=== PATIENT | male | born 1975 | race Caucasian/White ===

== ENCOUNTER 2017-08-06 08:18 | Emergency (ER) | payer BC ==
[2017-08-06 08:29] VITALS: BP 128/79
--- NOTE | 2017-08-06 08:41 | EDM.PDOC ---
ED HPI GENERAL MEDICAL PROBLEM - General Chief Complaint: Abdominal Pain Stated Complaint: AB PAIN [id number] Time Seen by Provider: 08/06/17 08:32 Source of Information: Reports: Patient History Limitations: Reports: No Limitations - History of Present Illness INITIAL COMMENTS - FREE TEXT/NARRATIVE: 41 yo white male w/ PMHx. Diverticulitis presently taking oral antibiotics c/o LLQ pain w/ fever and blood in stool Onset Date: 08/02/17 Onset Time: 12:00 Duration: Day(s): Location: Reports: Abdomen Quality: Reports: Ache, Same as Previous Episode Severity: Moderate Improves with: Reports: None Worsens with: Reports: None Associated Symptoms: Reports: Loss of Appetite Left Lower Abdomen Pain Score (Numeric/FACES): 8 - Related Data Allergies Allergy/AdvReac Type Severity Reaction Status Date / Time No Known Allergies Allergy Unverified 08/06/17 08:29 Home Meds: Home Meds Aspirin [Halfprin] 81 mg PO DAILY 08/22/14 [History] Simvastatin [Zocor] 20 mg PO BEDTIME 08/22/14 [History] Acetaminophen [Tylenol Extra Strength] 1,000 mg PO ASDIRECTED PRN 08/06/17 [ History] Esomeprazole Magnesium [Nexium] 20 mg PO DAILY 08/06/17 [History] Losartan [Cozaar] 25 mg PO DAILY 08/06/17 [History] Social & Family History - Tobacco Use Smoking Status *Q: Never Smoker - Alcohol Use Days Per Week of Alcohol Use: 1 - Recreational Drug Use Recreational Drug Use: No Drug Use in Last 12 Months: No ED ROS GENERAL - Review of Systems Review Of Systems: See Below Constitutional: Reports: No Symptoms HEENT: Reports: No Symptoms Respiratory: Reports: No Symptoms Cardiovascular: Reports: No Symptoms Endocrine: Reports: No Symptoms GI/Abdominal: Reports: Abdominal Pain (LLQ) : Reports: No Symptoms Musculoskeletal: Reports: No Symptoms Skin: Reports: No Symptoms Neurological: Reports: No Symptoms Psychiatric: Reports: No Symptoms Hematologic/Lymphatic: Reports: No Symptoms Immunologic: Reports: No Symptoms ED EXAM, GI/ABD - Physical Exam Exam: See Below Exam Limited By: No Limitations General Appearance: Alert Eyes: Bilateral: EOMI Ears: Normal External Exam Nose: Normal Inspection Throat/Mouth: Normal Inspection Head: Atraumatic Neck: Normal Inspection Respiratory/Chest: No Respiratory Distress Cardiovascular: Normal Peripheral Pulses GI/Abdominal Exam: Abnormal Bowel Sounds (decreased) Back Exam: Normal Inspection Extremities: Normal Inspection, Normal Range of Motion Neurological: Alert, Oriented, CN II-XII Intact Psychiatric: Normal Affect Skin Exam: Warm, Dry Lymphatic: No Adenopathy Course - Vital Signs Last Recorded V/S: Last Vital Signs Temp 36.0 C 08/06/17 08:24 Pulse 96 08/06/17 08:24 Resp 16 08/06/17 08:24 BP 128/79 08/06/17 08:24 Pulse Ox 100 08/06/17 08:24 - Orders/Labs/Meds Orders: Active Orders 24 hr Category Date Time Status Abdomen 2V AP Flat Upright [CR] Urgent Exams 08/06/17 08:33 Stop Req Ciprofloxacin in D5W [Cipro in D5W 400 MG/200 ML] 400 Med 08/06/17 10:26 Ordered mg Premix Bag 1 bag IV ONETIME Sodium Chloride 0.9% [Normal Saline] 1,000 ml Med 08/06/17 08:45 Active IV ASDIRECTED metroNIDAZOLE/Normal Saline [Flagyl 500 MG in NS 100 ML Med 08/06/17 10:26 Ordered ] 500 mg Premix Bag 100 bag IV ONETIME Medication Orders Sodium Chloride (Normal Saline) 1,000 mls @ 150 mls/hr IV ASDIRECTED [facility] Last Admin: 08/06/17 09:24 Dose: 150 mls/hr Ciprofloxacin/Dextrose 400 mg/ (Premix) 200 mls @ 200 mls/hr IV ONETIME ONE Stop: 08/06/17 11:25 Metronidazole 500 mg/ Premix 100 mls @ 100 mls/hr IV ONETIME ONE Stop: 08/06/17 11:25 Labs: Laboratory Tests 08/06/17 08/06/17 08/06/17 Range/Units 08:48 08:48 08:48 WBC 16.3 H (5.0-10.0) 10^3/uL RBC 5.62 (4.6-6.2) 10^6/uL Hgb 15.9 (14.0-18.0) g/dL Hct 46.5 (40.0-54.0) % MCV 82.7 (80-100) fL MCH 28.3 (27.0-34.0) pg MCHC 34.2 (33.0-35.0) g/dL Plt Count 224 (150-450) 10^3/uL Neut % (Auto) 76.1 H (42.2-75.2) % Lymph % (Auto) 14.2 L (20.5-50.1) % [place] % (Auto) 8.9 H (2-8) % Eos % (Auto) 0.6 L (1.0-3.0) % Baso % (Auto) 0.2 (0.0-1.0) % Sodium 139 (135-145) mmol/L Potassium 4.5 (3.6-5.0) mmol/L Chloride 103 (101-111) mmol/L Carbon Dioxide 28.0 (21.0-31.0) mmol/L Anion Gap 12.5 BUN 11 (7-18) mg/dL Creatinine 0.8 (0.6-1.3) mg/dL Est Cr Clr Drug Dosing 119.31 mL/min Estimated GFR (MDRD) > 60 BUN/Creatinine Ratio 13.75 Glucose 111 H (74-105) mg/dL Calcium 9.7 (8.4-10.2) mg/dl Total Bilirubin 1.0 (0.2-1.0) mg/dL AST 21 (10-42) IU/L ALT 31 (10-60) IU/L Alkaline Phosphatase 75 (42-121) IU/L Total Protein 7.8 (6.7-8.2) g/dl Albumin 3.9 (3.2-5.5) g/dl Globulin 3.9 Albumin/Globulin Ratio 1.00 Amylase 48 (28-100) U/L Lipase 19 L (22-51) U/L Urine Color (YELLOW) Urine Appearance (CLEAR) Urine pH (5.0-9.0) Ur Specific [place] (1.005-1.030) Urine Protein (NEGATIVE) Urine Glucose (UA) (NEGATIVE) Urine Ketones (NEGATIVE) Urine Occult Blood (NEGATIVE) Urine Nitrite (NEGATIVE) Urine Bilirubin (NEGATIVE) Urine Urobilinogen (0.2-1.0) mg/dL Ur Leukocyte Esterase (NEGATIVE) Urine RBC /HPF Urine WBC (0-5/HPF) /HPF Ur Epithelial Cells /HPF Urine Bacteria (0-FEW/HPF) /HPF Urine Mucus /LPF 10/14/17 Range/Units 10:15 WBC (5.0-10.0) 10^3/uL RBC (4.6-6.2) 10^6/uL Hgb (14.0-18.0) g/dL Hct (40.0-54.0) % MCV (80-100) fL MCH (27.0-34.0) pg MCHC (33.0-35.0) g/dL Plt Count (150-450) 10^3/uL Neut % (Auto) (42.2-75.2) % Lymph % (Auto) (20.5-50.1) % [place] % (Auto) (2-8) % Eos % (Auto) (1.0-3.0) % Baso % (Auto) (0.0-1.0) % Sodium (135-145) mmol/L Potassium (3.6-5.0) mmol/L Chloride (101-111) mmol/L Carbon Dioxide (21.0-31.0) mmol/L Anion Gap BUN (7-18) mg/dL Creatinine (0.6-1.3) mg/dL Est Cr Clr Drug Dosing mL/min Estimated GFR (MDRD) BUN/Creatinine Ratio Glucose (74-105) mg/dL Calcium (8.4-10.2) mg/dl Total Bilirubin (0.2-1.0) mg/dL AST (10-42) IU/L ALT (10-60) IU/L Alkaline Phosphatase (42-121) IU/L Total Protein (6.7-8.2) g/dl Albumin (3.2-5.5) g/dl Globulin Albumin/Globulin Ratio Amylase (28-100) U/L Lipase (22-51) U/L Urine Color [place] (YELLOW) Urine Appearance Clear (CLEAR) Urine pH 7.0 (5.0-9.0) Ur Specific [place] 1.010 (1.005-1.030) Urine Protein Trace H (NEGATIVE) Urine Glucose (UA) Negative (NEGATIVE) Urine Ketones Negative (NEGATIVE) Urine Occult Blood Moderate H (NEGATIVE) Urine Nitrite Negative (NEGATIVE) Urine Bilirubin Negative (NEGATIVE) Urine Urobilinogen 0.2 (0.2-1.0) mg/dL Ur Leukocyte Esterase Negative (NEGATIVE) Urine RBC 20-30 H /HPF Urine WBC 0-5 (0-5/HPF) /HPF Ur Epithelial Cells Few /HPF Urine Bacteria Rare (0-FEW/HPF) /HPF Urine Mucus Few H /LPF Meds: Medications Generic Name Dose Route Start Last Admin Trade Name Freq PRN Reason Stop Dose Admin Sodium Chloride 1,000 mls @ 150 mls/hr 08/06/17 08:45 08/06/17 09:24 Normal Saline IV 150 mls/hr ASDIRECTED ELOISA Administration Ciprofloxacin/Dextrose 400 mg/ 200 mls @ 200 mls/hr 08/06/17 10:26 Premix IV 08/06/17 11:25 ONETIME ONE Metronidazole 500 mg/ Premix 100 mls @ 100 mls/hr 08/06/17 10:26 IV 08/06/17 11:25 ONETIME ONE Discontinued Medications Generic Name Dose Route Start Last Admin Trade Name Alexander PRN Reason Stop Dose Admin Hydromorphone HCl 1 mg 08/06/17 09:20 Dilaudid IM 08/06/17 09:21 ONETIME ONE Hydromorphone HCl 1 mg 08/06/17 09:25 08/06/17 09:27 Dilaudid IVPUSH 08/06/17 09:26 1 mg ONETIME ONE Administration Iopamidol 100 ml 08/06/17 08:43 08/06/17 09:37 Isovue-300 (61%) IVPUSH 08/06/17 08:44 100 ml ONETIME ONE Administration Tamsulosin HCl 0.4 mg 08/06/17 10:26 Flomax PO 08/06/17 10:27 ONETIME ONE Departure - Departure Time of Disposition: 10:37 Disposition: DC/Tfer to Acute Hospital 02 Condition: Fair Clinical Impression: Diverticulitis large intestine w/o perforation or abscess w/o bleeding, Kidney stone on right side - Discharge Information Forms: ED Department Discharge, Interfacility Transfer EMTALA - My Orders Last 24 Hours: My Active Orders 08/06/17 08:33 Abdomen 2V AP Flat Upright [CR] Urgent 08/06/17 08:45 Sodium Chloride 0.9% [Normal Saline] 1,000 ml IV ASDIRECTED 08/06/17 10:26 Ciprofloxacin in D5W [Cipro in D5W 400 MG/200 ML] 400 mg Premix Bag 1 bag IV ONETIME metroNIDAZOLE/Normal Saline [Flagyl 500 MG in NS 100 ML] 500 mg Premix Bag 100 bag IV ONETIME - Assessment/Plan Last 24 Hours: My Active Orders 08/06/17 08:33 Abdomen 2V AP Flat Upright [CR] Urgent 08/06/17 08:45 Sodium Chloride 0.9% [Normal Saline] 1,000 ml IV ASDIRECTED 08/06/17 10:26 Ciprofloxacin in D5W [Cipro in D5W 400 MG/200 ML] 400 mg Premix Bag 1 bag IV ONETIME metroNIDAZOLE/Normal Saline [Flagyl 500 MG in NS 100 ML] 500 mg Premix Bag 100 bag IV ONETIME
[2017-08-06] MEDS ORDERED: Iopamidol 612 MG/ML 100 ML Bottle IVPUSH ONE (08:43)
[2017-08-06] MEDS ORDERED: Sodium Chloride 0.9% 1,000 ML IV SCH (08:45)
[2017-08-06 09:14] LABS: CHLORIDE,CL 103 mmol/L (101-111); SODIUM,NA 139 mmol/L (135-145)
[2017-08-06] MEDS ORDERED: HYDROmorphone 1 MG/ML Syringe IM ONE (09:20)
[2017-08-06] MEDS ORDERED: HYDROmorphone 1 MG/ML Syringe IVPUSH ONE ×2 (09:25→11:09)
[2017-08-06] MEDS ORDERED: metroNIDAZOLE/Normal Saline 500 MG in Premix Bag 100 BAG IV ONE (10:26)
[2017-08-06] MEDS ORDERED: Ciprofloxacin in D5W 400 MG in Premix Bag 1 BAG IV ONE ×2 (10:26)
[2017-08-06] MEDS ORDERED: Tamsulosin 0.4 MG Cap.ER PO ONE (10:26)
== END 2017-08-06 11:43 ==
LOC: DL.ED 08:18
DX: K57.32 Diverticulitis of large intestine without perforation or abscess without bleeding (principal); N20.1 Calculus of ureter; Z79.82 Long term (current) use of aspirin; Z79.899 Other long term (current) drug therapy
CPT/HCPCS: 36415; 74177; 80053; 81001; 82150; 83690; 85025; 96361; 96365; 96375; 96376; 99285; A9270; J0744; J1170; J7030; Q9967

== ENCOUNTER 2021-06-26 13:40 | Emergency (ER) | payer BC ==
[2021-06-26] MEDS ORDERED: Sodium Chloride 0.9% 10 ML Syringe FLUSH PRN (13:55)
--- NOTE | 2021-06-26 14:05 | EDM.PDOC ---
"<Stevie Meza Isrrael - Last Filed: 06/26/21 15:58> ED HPI GENERAL MEDICAL PROBLEM - General Chief Complaint: Respiratory Problem Stated Complaint: SHORT OF BREATH AND DIZZY Time Seen by Provider: 06/26/21 13:56 Source of Information: Reports: Patient, Family History Limitations: Reports: No Limitations - History of Present Illness INITIAL COMMENTS - FREE TEXT/NARRATIVE: 45 y/o M c/o weakness dizziness and sob since noon. Pt states he feels like he cant catch his breath. He described the dizziness as constant worse with walking and it feels like the room is spinning. He reports a similar episode on Tuesday but it was much less severe and shorter in duration. Hx of kidney stones, anxiety and depression. Denies fever, cough, chills, drugs, etoh, cp, abd pn, pelvic pn, recent trauma, flank pn, sandoval, vision prob. Onset: Today, Sudden Duration: Hour(s): Location: Reports: Head, Chest Quality: Reports: Other (heavy) Improves with: Reports: Other (lying flat) Worsens with: Reports: Movement - Related Data Allergies Allergy/AdvReac Type Severity Reaction Status Date / Time No Known Allergies Allergy Verified 06/26/21 14:10 Home Meds: Home Meds Aspirin [Halfprin] 81 mg PO DAILY 08/22/14 [History] Simvastatin [Zocor] 20 mg PO BEDTIME 08/22/14 [History] Acetaminophen [Tylenol Extra Strength] 1,000 mg PO ASDIRECTED PRN 08/06/17 [History] Esomeprazole Magnesium [Nexium] 40 mg PO DAILY 08/06/17 [History] Losartan [Cozaar] 25 mg PO DAILY 08/06/17 [History] Rosuvastatin [Crestor] 20 mg PO BEDTIME 06/26/21 [History] Sertraline [Zoloft] 50 mg PO BEDTIME 06/26/21 [History] Tamsulosin HCl [Flomax] 0.4 mg PO DAILY 06/26/21 [History] Past Medical History HEENT History: Reports: None Cardiovascular History: Reports: High Cholesterol Respiratory History: Reports: None Gastrointestinal History: Reports: Diverticulosis Musculoskeletal History: Reports: None Neurological History: Reports: None Psychiatric History: Reports: None Endocrine/Metabolic History: Reports: None Hematologic History: Reports: None Immunologic History: Reports: None Oncologic (Cancer) History: Reports: None Dermatologic History: Reports: None - Infectious Disease History Infectious Disease History: Reports: Chicken Pox - Past Surgical History Head Surgeries/Procedures: Reports: None GI Surgical History: Reports: Colonoscopy Social & Family History - Caffeine Use Caffeine Use: Reports: Coffee ED ROS GENERAL - Review of Systems Review Of Systems: Comprehensive ROS is negative, except as noted in HPI. ED EXAM, GENERAL - Physical Exam Exam: See Below General Appearance: Alert Eye Exam: Bilateral Eye: PERRL Ears: Normal External Exam, Normal Canal, Hearing Grossly Normal, Normal TMs Nose: Normal Inspection, Normal Mucosa, No Blood Throat/Mouth: Normal Inspection, Normal Lips, Normal Teeth, Normal Gums, Normal Oropharynx, Normal Voice, No Airway Compromise Head: Atraumatic Neck: Normal Inspection Respiratory/Chest: Lungs Clear, Normal Breath Sounds Cardiovascular: Normal Peripheral Pulses, Regular Rate, Rhythm GI/Abdominal: Soft, Non-Tender (Male) Exam: Deferred Back Exam: Normal Inspection, Full Range of Motion Extremities: Normal Inspection, Normal Range of Motion, Non-Tender, Normal Cap illary Refill, No Pedal Edema Neurological: Alert Psychiatric: Flat Affect Skin Exam: Warm, Dry, Intact Course - Re-Assessments/Exams Free Text/Narrative Re-Assessment/Exam: 06/26/21 15:58 Discussed pts labs, exam, ekg and radiological findings with pt and his . I informed them that all tests came back negative and no cause for the pts condition could be determined. Given the pts hx of anxiety and depression it is possible that pt experienced some form of an anxiety attack. At the present the pt is symptom free with no complaints and feels well enough to be discharged. Departure - Departure Time of Disposition: 16:02 Disposition: Home, Self-Care 01 Clinical Impression: Dizziness, PVC's (premature ventricular contractions) - Discharge Information Instructions: Dizziness, Premature Ventricular Contraction Forms: ED Department Discharge Additional Instructions: If any new symptoms or [facility] develop [facility] or return to the ER. <Aubrey Baum - Last Filed: 06/26/21 16:05> Past Medical History Gastrointestinal History: Reports: Diverticulosis (Diverticulitis w/large bowel resection) Genitourinary History: Reports: Renal Calculus (With stent) Psychiatric History: Reports: Anxiety, Depression - Past Surgical History GI Surgical History: Reports: Colon (Decending bowel resection for diverticulitis), Colonoscopy Male Surgical History: Reports: Kidney Stone Extraction, Renal Calculus, Ureteral Stent Social & Family History - Family History Cardiac: Reports: CAD (Father), High Cholesterol (Father), [place] (Father) GI: Reports: Diverticulitis (Father) : Reports: Renal Calculus (Father) Neurological: Reports: MS (Sister) Endocrine/Metabolic: Reports: Diabetes, type II (Father) - Tobacco Use Tobacco Use Status *Q: Current Every Day Tobacco User Tobacco Use Within Last Twelve Months: Snuff/Dip - Caffeine Use Caffeine Use: Reports: Coffee - Alcohol Use Alcohol Use Frequency: Socially - Recreational Drug Use Recreational Drug Use: No - Living Situation & Occupation Living situation: Reports: , with Family Occupation: Employed ED ROS GENERAL - Review of Systems Review Of Systems: Comprehensive ROS is negative, except as noted in HPI. #1 Interpretation EKG Date: 06/26/21 Time: 02:00 Rhythm: Other (SR with PVC) Rate (Beats/Min): 67 [place]: Normal P-Wave: Present QRS: Normal ST-T: Normal QT: Normal Comparison: NA - No Prior EKG Course - Vital Signs Last Recorded V/S: Last Vital Signs Temp 98.0 F 06/26/21 15:30 Pulse 66 06/26/21 15:00 Resp 22 H 06/26/21 15:00 BP 121/81 06/26/21 15:00 Pulse Ox 94 L 06/26/21 15:00 - Orders/Labs/Meds Orders: Active Orders 24 hr Category Date Time Status Peripheral IV Care [RC] . DIRECTED Care 06/26/21 13:55 Active CULTURE BLOOD [BC] Stat Lab 06/26/21 14:02 Received CULTURE BLOOD [BC] Stat Lab 06/26/21 15:16 Received Sodium Chloride 0.9% [Saline Flush] Med 06/26/21 13:55 Active 10 ml FLUSH ASDIRECTED PRN Blood Culture x2 Reflex Set [OM.PC] Stat Oth 06/26/21 13:52 Ordered Peripheral IV Insertion Adult [OM.PC] Stat Oth 06/26/21 13:54 Ordered Medication Orders Sodium Chloride (Sodium Chloride 0.9% 10 Ml Syringe) 10 ml FLUSH ASDIRECTED PRN PRN Reason: Keep Vein Open Last Admin: 06/26/21 14:47 Dose: 10 ml Documented by: TORSTEN Labs: Laboratory Tests 06/26/21 06/26/21 06/26/21 Range/Units 14:02 14:02 14:02 WBC 10.5 H (5.0-10.0) 10^3/uL RBC 5.40 (4.6-6.2) 10^6/uL Hgb 15.3 (14.0-18.0) g/dL Hct 44.6 (40.0-54.0) % MCV 82.6 (80-100) fL MCH 28.3 (27.0-34.0) pg MCHC 34.3 (33.0-35.0) g/dL Plt Count 251 (150-450) 10^3/uL Neut % (Auto) 67.8 (42.2-75.2) % Lymph % (Auto) 24.6 (20.5-50.1) % [place] % (Auto) 7.1 (2-8) % Eos % (Auto) 0.3 L (1.0-3.0) % Baso % (Auto) 0.2 (0.0-1.0) % PT 10.6 (9.0-12.0) SEC INR 1.1 (0.9-1.2) APTT 26.7 (22.0-34.0) SEC D-Dimer, Quantitative < 100 (0-400) ng/mL Sodium 138 (136-145) mmol/L Potassium 3.6 (3.5-5.1) mmol/L Chloride 102 (98-107) mmol/L Carbon Dioxide 28 (21-32) mmol/L Anion Gap 11.6 (7-13) mEq/L BUN 12 (7-18) mg/dL Creatinine 0.94 (0.70-1.30) mg/dL Est Cr Clr Drug Dosing 95.00 mL/min Estimated GFR (MDRD) > 60 BUN/Creatinine Ratio 12.8 (No establ ref range) Glucose 126 H (70-99) mg/dL Calcium 8.9 (8.5-10.1) mg/dL Magnesium 1.9 (1.8-2.4) mg/dL Total Bilirubin 0.5 (0.2-1.0) mg/dL AST 19 (15-37) U/L ALT 46 (16-63) U/L Alkaline Phosphatase 98 (46-116) U/L Troponin I High Sens 5 (<=76) pg/mL C-Reactive Protein < 0.2 (0.0-0.9) mg/dL B-Natriuretic Peptide 24 (0-100) pg/ml Total Protein 7.2 (6.4-8.2) g/dL Albumin 3.3 L (3.4-5.0) g/dL Globulin 3.9 Albumin/Globulin Ratio 0.85 Amylase 54 (25-115) U/L Lipase 127 (73-393) U/L TSH, Ultra Sensitive (0.36-3.74) uIU/mL SARS-CoV-2 RNA (PRITESH) (NEGATIVE) 06/26/21 06/26/21 Range/Units 14:02 14:10 WBC (5.0-10.0) 10^3/uL RBC (4.6-6.2) 10^6/uL Hgb (14.0-18.0) g/dL Hct (40.0-54.0) % MCV (80-100) fL MCH (27.0-34.0) pg MCHC (33.0-35.0) g/dL Plt Count (150-450) 10^3/uL Neut % (Auto) (42.2-75.2) % Lymph % (Auto) (20.5-50.1) % [place] % (Auto) (2-8) % Eos % (Auto) (1.0-3.0) % Baso % (Auto) (0.0-1.0) % PT (9.0-12.0) SEC INR (0.9-1.2) APTT (22.0-34.0) SEC D-Dimer, Quantitative (0-400) ng/mL Sodium (136-145) mmol/L Potassium (3.5-5.1) mmol/L Chloride (98-107) mmol/L Carbon Dioxide (21-32) mmol/L Anion Gap (7-13) mEq/L BUN (7-18) mg/dL Creatinine (0.70-1.30) mg/dL Est Cr Clr Drug Dosing mL/min Estimated GFR (MDRD) BUN/Creatinine Ratio (No establ ref range) Glucose (70-99) mg/dL Calcium (8.5-10.1) mg/dL Magnesium (1.8-2.4) mg/dL Total Bilirubin (0.2-1.0) mg/dL AST (15-37) U/L ALT (16-63) U/L Alkaline Phosphatase (46-116) U/L Troponin I High Sens (<=76) pg/mL C-Reactive Protein (0.0-0.9) mg/dL B-Natriuretic Peptide (0-100) pg/ml Total Protein (6.4-8.2) g/dL Albumin (3.4-5.0) g/dL Globulin Albumin/Globulin Ratio Amylase (25-115) U/L Lipase (73-393) U/L TSH, Ultra Sensitive 0.97 (0.36-3.74) uIU/mL SARS-CoV-2 RNA (PRITESH) Negative (NEGATIVE) Meds: Medications Generic Name Dose Route Start Last Admin Trade Name Freq PRN Reason Stop Dose Admin Sodium Chloride 10 ml 06/26/21 13:55 06/26/21 14:47 Sodium Chloride 0.9% 10 Ml Syringe FLUSH 10 ml ASDIRECTED PRN Administration Keep Vein Open - Radiology Interpretation Free Text/Narrative:: [facility] Final Radiology Report Call: [phone] assistance Online chat: [email or web address] Name: JOHN WELCH Age: 45Years M Date: 06/26/2021 SSN: -- : [id number] Study: CT HEAD WO CONT Requesting Physician: AUBREY BAUM Images: [id number] Addl Studies: Provided Clinical History: Acute dizziness Contrast: Without Contrast Medium: Contrast Amount: Contrast Method: Page 1 of 2 PROCEDURE INFORMATION: Exam: CT Head Without Contrast Exam date and time: 06/26/2021 3:42 PM Age: 45 years old Clinical indication: Dizziness; Additional info: Acute dizziness TECHNIQUE: Imaging protocol: Computed tomography of the head without contrast. Radiation optimization: All CT scans at this facility use at least one of these dose optimization techniques: automated exposure control; mA and/or kV adjustment per patient size (includes targeted exams where dose is matched to clinical indication); or iterative reconstruction. COMPARISON: No relevant prior studies available. FINDINGS: Brain: There is no significant midline shift. There is no evidence of acute hemorrhage within the brain parenchyma or the subarachnoid space. Cerebral ventricles: The ventricular system is normal in size and configuration. Paranasal sinuses: The visualized portions of the sinuses are normal. Mastoid air cells: The mastoid sinuses are normal. Orbital cavity: The orbits are normal. Bones/joints: The skull is normal. Soft tissues: The extracranial soft tissues are normal. IMPRESSION: No acute abnormality. Thank you for allowing us to participate in the care of your patient. JOHN WELCH | Final Radiology Report CONFIDENTIALITY STATEMENT This report is intended only for use by the referring physician, and only in accordance with law. If you received this in error, call [phone]. Page 2 of 2 Dictated and Authenticated by: Sebas Rivera MD 06/26/2021 3:56 PM Central Time ([place] & [place]) Departure - Departure Condition: Good - Discharge Information *PRESCRIPTION DRUG MONITORING PROGRAM REVIEWED*: Not Applicable *COPY OF PRESCRIPTION DRUG MONITORING REPORT IN PATIENT SIMONE: Not Applicable Sepsis Event Note (ED) - Focused Exam Vital Signs: Vital Signs Temp Pulse Resp BP Pulse Ox 06/26/21 15:30 98.0 F 06/26/21 15:00 66 22 H 121/81 94 L 06/26/21 13:40 98.5 F 62 16 141/93 H 98 - My Orders Last 24 Hours: My Active Orders 06/26/21 13:52 Blood Culture x2 Reflex Set [OM.PC] Stat 06/26/21 13:54 Peripheral IV Insertion Adult [OM.PC] Stat 06/26/21 13:55 Peripheral IV Care [RC] . DIRECTED Sodium Chloride 0.9% [Saline Flush] 10 ml FLUSH ASDIRECTED PRN 06/26/21 14:02 CULTURE BLOOD [BC] Stat 06/26/21 15:16 CULTURE BLOOD [BC] Stat - Assessment/Plan Last 24 Hours: My Active Orders 06/26/21 13:52 Blood Culture x2 Reflex Set [OM.PC] Stat 06/26/21 13:54 Peripheral IV Insertion Adult [OM.PC] Stat 06/26/21 13:55 Peripheral IV Care [RC] . DIRECTED Sodium Chloride 0.9% [Saline Flush] 10 ml FLUSH ASDIRECTED PRN 06/26/21 14:02 CULTURE BLOOD [BC] Stat 06/26/21 15:16 CULTURE BLOOD [BC] Stat"
--- NOTE | 2021-06-26 14:23 | CR ---
PROCEDURE INFORMATION: Exam: XR Chest Exam date and time: 06/26/2021 2:05 PM Age: 45 years old Clinical indication: Other: Chest pain TECHNIQUE: Imaging protocol: XR of the chest. Views: 1 view. COMPARISON: CT Abdomen Pelvis w Cont 08/06/2017 8:54 AM FINDINGS: Lungs: Unremarkable. No consolidation. Pleural spaces: Unremarkable. No pleural effusion. No pneumothorax. Heart/Mediastinum: Unremarkable. No cardiomegaly. Bones/joints: Unremarkable. IMPRESSION: No acute findings.
[2021-06-26 14:48] LABS: ANION GAP 11.6 mEq/L (7-13); CHLORIDE,CL 102 mmol/L (98-107); SODIUM,NA 138 mmol/L (136-145)
[2021-06-26 14:50] LABS: PTT,PARTIAL THROMBOPLSTIN TIME 26.7 SEC (22.0-34.0)
[2021-06-26 15:27] VITALS: PULSE 66
--- NOTE | 2021-06-26 15:56 | CT ---
PROCEDURE INFORMATION: Exam: CT Head Without Contrast Exam date and time: 06/26/2021 3:42 PM Age: 45 years old Clinical indication: Dizziness; Additional info: Acute dizziness TECHNIQUE: Imaging protocol: Computed tomography of the head without contrast. Radiation optimization: All CT scans at this facility use at least one of these dose optimization techniques: automated exposure control; mA and/or kV adjustment per patient size (includes targeted exams where dose is matched to clinical indication); or iterative reconstruction. COMPARISON: No relevant prior studies available. FINDINGS: Brain: There is no significant midline shift. There is no evidence of acute hemorrhage within the brain parenchyma or the subarachnoid space. Cerebral ventricles: The ventricular system is normal in size and configuration. Paranasal sinuses: The visualized portions of the sinuses are normal. Mastoid air cells: The mastoid sinuses are normal. Orbital cavity: The orbits are normal. Bones/joints: The skull is normal. Soft tissues: The extracranial soft tissues are normal. IMPRESSION: No acute abnormality.
[2021-06-26 16:22] VITALS: BP 116/80
== END 2021-06-26 16:15 | disposition home or self-care (01) ==
LOC: DL.ED 13:40
DX: R42 Dizziness and giddiness (principal); I49.3 Ventricular premature depolarization; E78.00 Pure hypercholesterolemia, unspecified; Z79.82 Long term (current) use of aspirin; Z79.899 Other long term (current) drug therapy; Z72.0 Tobacco use; Z20.822 Contact with and (suspected) exposure to COVID-19
CPT/HCPCS: 36415; 70450; 71045; 80053; 82150; 83690; 83735; 83880; 84443; 84484; 85025; 85379; 85610; 85730; 86140; 87040; 93005; 99285-25; U0002